=== PATIENT | male | born 1990 | race Caucasian/White ===

== ENCOUNTER 2016-11-03 18:55 | Emergency (ER) | payer SELFPAY ==
--- NOTE | ~2016-11-03 | ER ---
PATIENT'S NAME: NICKOLAS RODRIGUEZ [facility] AGE: 26 Y [address] ROOM: [place] [address] LOCATION: [facility] ADMIT DATE: 11/03/2016 ER/Outpatient Report DISCHARGE DATE: 11/03/2016 FAMILY PHYSICIAN: PHYSICIAN, NO ATTENDING PHYSICIAN: Francois Seaman Time of Arrival: 1859 hours. Time of Evaluation: 1859 hours. CHIEF COMPLAINT: Sore throat, headache, and cough. HISTORY OF PRESENT ILLNESS: The patient is a 26-year-old male, who presents to the emergency department today with a chief complaint of sore throat, headache, and cough. He reports this started about 2 days prior to arrival. He has had a low-grade fever subjective. He denies any nausea or vomiting. No diarrhea or constipation. No mental status changes. No neck discomfort. No photophobia. No visual disturbances. He reports that he has not been taking his blood pressure medications because he has been out for about 2 to 3 . He just moved from [place]. PAST MEDICAL HISTORY: Hypertension. PAST SURGICAL HISTORY: [place] teeth. SOCIAL HISTORY: The patient chews. Drinks alcohol occasionally. Denies any illicit drug use. ALLERGIES: LISINOPRIL. MEDICATIONS: Diltiazem and losartan. PRIMARY CARE DOCTOR: None. REVIEW OF SYSTEMS: All systems are reviewed by myself and are negative with the exception of those discussed in HPI and past medical history. PHYSICAL EXAMINATION: PATIENT'S NAME: NICKOLAS RODRIGUEZ [facility] AGE: 26 Y [address] ROOM: [place] [address] LOCATION: [facility] ADMIT DATE: 11/03/2016 ER/Outpatient Report DISCHARGE DATE: 11/03/2016 FAMILY PHYSICIAN: PHYSICIAN, NO ATTENDING PHYSICIAN: Francois Seaman VITAL SIGNS: Weight 165.9 kg, blood pressure 188/109, pulse 89, respiratory rate 20, temperature 99.2, oxygen saturation 92% on room air. GENERAL: The patient is a 26-year-old male, appears stated age. He is obese, in no acute distress. HEENT: Head is normocephalic and atraumatic. Pupils are equal, round, and reactive to light. Oropharynx is clear. Posterior pharynx has tonsillar exudates bilaterally with surrounding erythema. There is no Papi's. There is no peritonsillar abscess noted. NECK: Supple. There are no masses palpated. CARDIOVASCULAR: Regular rate and rhythm. No murmurs, rubs, or gallops. LUNGS: Clear to auscultation bilaterally. No wheezes, rales, or rhonchi. ABDOMEN: Soft, nontender, and nondistended. No rebound, rigidity, or guarding. MUSCULOSKELETAL: The patient moves all 4 extremities and ambulates with steady gait. SKIN: Warm and dry. There are no rashes or lesions noted. LABORATORY DATA AND X-RAYS: None. IMPRESSION: 1. Acute exudative pharyngitis. 2. Medication refill. 3. Initial visit. EMERGENCY DEPARTMENT COURSE: The patient was brought back to the examination room. Seen and evaluated by myself. History and physical performed as described above. The patient has evidence of an exudative pharyngitis on the posterior pharynx. He does have elevated blood pressure as well. He does report he has been out of his medications for 2 to 3 days. I have discussed with him the importance of taking medications as prescribed. I have provided him with cards for primary care doctors in the [facility] and discussed this with him. I have strongly recommended he follows up with his PCP in 2 to 3 days for re- evaluation. I have written refill medications for his high blood pressure medication. I have written a prescription for amoxicillin for his exudative pharyngitis. I have discussed return to care instructions including worsening symptoms or any other concerns to return to the emergency department as soon as possible. The patient is agreeable without further questions at this time. DISPOSITION: The patient discharged home in good condition. PATIENT'S NAME: NICKOLAS RODRIGUEZ [facility] AGE: 26 Y [address] ROOM: [place] [address] LOCATION: ED ADMIT DATE: 11/03/2016 ER/Outpatient Report DISCHARGE DATE: 11/03/2016 FAMILY PHYSICIAN: PHYSICIAN, NO ATTENDING PHYSICIAN: Francois Seaman DO ANAIS BERNAL/chari /[id number] d: 11/04/16 0002 t: 11/06/16 0532, OUTPATIENT REPORT
== END 2016-11-03 19:19 | disposition disaster alternative care site (69) ==
LOC: GMED 18:55
DX: J02.9 Acute pharyngitis, unspecified (principal); I10 Essential (primary) hypertension; F17.220 Nicotine dependence, chewing tobacco, uncomplicated; Z76.0 Encounter for issue of repeat prescription; Z98.818 Other dental procedure status; Z88.8 Allergy status to other drugs, medicaments and biological substances; Z79.899 Other long term (current) drug therapy